=== PATIENT | male | born 1960 | race Caucasian/White ===

== ENCOUNTER → 2020-07-08 16:11 | Outpatient (BNVA) | payer OTHER, SELFPAY | PROVIDERS: Visit Provider Nurse Practitioner Family | DX: Z20.828 Contact with and (suspected) exposure to other viral communicable diseases (principal) | CPT/HCPCS: 87635 ==

== ENCOUNTER 2024-06-29 16:35 | Emergency (ER) | payer MEDICARE, MEDICAID, SELFPAY ==
[2024-06-29 16:47] VITALS: BP 156/91; PULSE 69; TEMP 36.5; O2SAT 99; BMI 31.1
--- NOTE | 2024-06-29 17:01 | XRR_ITS ---
PROCEDURE INFORMATION: Exam: XR Left Hand Exam date and time: 06/29/2024 5:06 PM Age: 64 years old Clinical indication: Injury or trauma; Other: Laceration to top of lt hand; Left TECHNIQUE: Imaging protocol: Radiologic exam of the left hand. Views: 3 or more views. COMPARISON: No relevant prior studies available. FINDINGS: Bones/joints: No evidence of fracture or subluxation. Radiocarpal articulation and carpal rows are grossly intact. No evidence of acute osseous erosion. Moderate-severe thumb carpometacarpal joint osteoarthritis. Soft tissues: Diffuse soft tissue edema. Deep laceration of the dorsum of the hand at the level of the metacarpophalangeal joints. 1 mm metallic foreign body in the dorsum of the wrist at the level of the carpus. XR/XR hand LT min 3V* [id number] IMPRESSION: 1. Deep laceration of the dorsum of the hand without evidence of fracture or subluxation. 2. 1 mm metallic foreign body in the dorsum of the wrist at the level of the carpus.
[2024-06-29 17:03] VITALS: BP 147/97; PULSE 92; RESP 18; O2SAT 98
--- NOTE | 2024-06-29 17:14 | CTR_ITS ---
PROCEDURE INFORMATION: Exam: CT Left Upper Extremity With Contrast, Hand Exam date and time: 06/29/2024 6:53 PM Age: 64 years old Clinical indication: Injury or trauma; Laceration; Hand; Left TECHNIQUE: Imaging protocol: Computed tomography of the left upper extremity with contrast. Exam focused on the hand. Radiation optimization: All CT scans at this facility use at least one of these dose optimization techniques: automated exposure control; mA and/or kV adjustment per patient size (includes targeted exams where dose is matched to clinical indication); or iterative reconstruction. Contrast material: OMNI 350; Contrast volume: 100 ml; Contrast route: INTRAVENOUS (IV); COMPARISON: CR (UP EXM, ) 06/29/2024 5:06 PM RADIATION DOSE METRICS: Total DLP (mGy-cm): 111.08 FINDINGS: Soft tissues: Deep laceration of the dorsum of the hand centered along the dorsum of the index and long finger metacarpophalangeal joints. No discrete fluid collection or hematoma. Soft tissue air extends proximally. There is attenuation of the index and long finger flexor tendons suggestive of at least partial tears. The index finger extensor tendon tear appears high-grade. No evidence of involvement of the thumb, ring or mild finger tendons. There is vascular injury to the digital vessels of the index and long fingers at the level of the laceration with suspected transsection of the small digital branches (for example, images 87-92 of series 13 and images 81-84 of series 13). There may be intraluminal thrombus as visualized on image 91 of series 13. Indeterminate 12 x 10 mm nodular mass along the dorsum of the small finger (image 88 of series 13). 1 mm metallic foreign body in the dorsum of the wrist. Bones/joints: Subtle cortical chip/impaction type fracture of the dorsum of the 3rd metacarpal would be difficult to exclude (image 18 of series 12). Otherwise no evidence of acute fracture or subluxation. Radiocarpal articulation and carpal rows are intact. Severe triscaphe degeneration. CT/CT hand LT w con [id number] IMPRESSION: 1. Deep laceration of the dorsum of the hand with suspected extensor tendon injuries of the long and index fingers. Hand surgery evaluation and MRI is recommended. 2. Possible subtle cortical chip/impaction fracture of the dorsum of the 3rd metacarpal head. Otherwise no evidence of fracture or subluxation. 3. Vascular injury involving the digital branches of the index and long fingers dorsally. 4. Indeterminate nodular mass along the dorsum of the small finger. Evaluation at time of MRI is recommended.
[2024-06-29] MEDS: ondansetron 2 mg/ML SDV 2 mL 4 MG IVP (17:33)
[2024-06-29] MEDS: ceFAZolin 1,000 mg SDV 1000 MG IVP (17:33)
[2024-06-29 17:47] LABS: Basophils # 0.1 10^3/uL (0.0-0.1); Basophils % 0.8 %; Eosinophils # 0.5 10^3/uL (0.0-0.8); Eosinophils % 6.8 %; Hematocrit 46.1 % (37-53); Lymphocytes # 1.3 10^3/uL (0.8-4.8); Lymphocytes % 19.9 %; Mean Corpuscular HGB Conc 33.8 g/dL (30-55); Mean Corpuscular Hemoglobin 30.1 pg (27-33); Mean Platelet Volume 8.2 fL (7.4-10.4); Monocytes # 0.5 10^3/uL (0.2-0.9); Monocytes % 7.7 %; Neutrophils # 4.28 10^3/uL (1.8-7.7); Neutrophils % 64.3 %; Nucleated Red Blood Cells % 0 %; Platelet Count 245 10^3/cmm (157-399); Red Blood Count 5.18 10^6/uL (3.85-5.65); Red Cell Distribution Width 11.9 % (12.1-15.1); White Blood Count 6.64 10^3/uL (3.29-11.43)
--- NOTE | 2024-06-29 17:48 | ED_ITS ---
Documented by User: Jonathon Liu DO 07/01/24 09:48 HPI - Wound/Laceration 2 General: Chief Complaint: Wound/Laceration Stated Complaint: large lac lt hand Time Seen by Provider: 06/29/24 17:01 History of Present Illness: 64-year-old male presents emergency room as a laceration over the second third and fourth knuckles on his left hand. He was using a chainsaw got some kicked back and hit his knuckles. He has difficult time extending his second and third fingers. Denies any other injuries. Related Data Home Medications Medication Instructions Recorded Confirmed loratadine 10 mg capsule 10 mg PO DAILY 07/08/20 07/08/20 omeprazole magnesium 20 mg 20 mg PO DAILY 07/08/20 07/08/20 tablet,delayed release (Prilosec OTC) Previous Rx's Medication Instructions Recorded cephalexin 500 mg capsule 500 mg PO Q6H 7 days #28 caps 06/29/24 hydrocodone 5 mg-acetaminophen 325 1 tab PO Q6H PRN pain #14 tabs 06/29/24 mg tablet Allergies Allergy/AdvReac Type Severity Reaction Status Date / Time Penicillins Allergy Unknown Verified 06/29/24 16:54 PFSH ED 2 PFSH: Social History (Updated 07/08/20 @ 15:32 by Sonja Og NP) Smoking and tobacco/nicotine status: never used tobacco/nicotine Alcohol intake: current Alcohol intake frequency: holidays/special occasions only Substance/Drug Use: never Physical Exam 2 Const: COMMON NORMALS: no acute distress GENERAL APPEARANCE: cooperative and comfortable ORIENTATION/CONSCIOUSNESS: Yes awake, Yes oriented to person, Yes oriented to place and Yes oriented to time HENMT: COMMON NORMALS: normocephalic, atraumatic and hearing grossly normal bilaterally HEAD & SCALP: normocephalic and atraumatic Resp: COMMON NORMALS: normal respiratory effort, No retractions, No use of accessory muscles and clear to auscultation bilaterally AUSCULTATION: clear to auscultation bilaterally Cardio: COMMON NORMALS: regular rate, regular rhythm and No murmurs present (Cardio) RATE: regular rate RHYTHM: regular rhythm Extremity: OTHER: You let irregular laceration and skin tears across the second third and fourth MP joints. No exposed bone or joint. Neuro: SENSORIUM/ORIENTATION: Yes oriented to person, Yes oriented to place and Yes oriented to time Skin: COMMON NORMALS: no rashes or lesions noted GENERAL SKIN EXAM: no rashes or lesions noted Course 2 Vital Signs: Vital signs: Vital Signs Temperature 97.7 F 06/29/24 16:47 Pulse Rate 84 06/29/24 22:41 Respiratory Rate 18 06/29/24 18:16 Blood Pressure 138/95 06/29/24 22:41 Pulse Oximetry 94 06/29/24 22:41 Oxygen Delivery Me thod Room Air 06/29/24 18:16 MDM - Wound/Laceration Medical Decision Making Care signed out to Dr. Bahena at change of shift. See final notes for diagnosis and disposition. Patient has times of approximately 9 mL of 1% epinephrine with epi, sewed loosely by midlevel provider after cleaning with Betadine and extensive irrigation, patient tolerated procedure well, patient will be discharged on Keflex and hydrocodone and referred to hand surgeon. Lab Data 06/29/24 17:38 06/29/24 18:07 Radiology Impressions Hand X-Ray 06/29/24 17:01 IMPRESSION: 1. Deep laceration of the dorsum of the hand without evidence of fracture or subluxation. 2. 1 mm metallic foreign body in the dorsum of the wrist at the level of the carpus. Hand CT 06/29/24 17:14 IMPRESSION: 1. Deep laceration of the dorsum of the hand with suspected extensor tendon injuries of the long and index fingers. Hand surgery evaluation and MRI is recommended. 2. Possible subtle cortical chip/impaction fracture of the dorsum of the 3rd metacarpal head. Otherwise no evidence of fracture or subluxation. 3. Vascular injury involving the digital branches of the index and long fingers dorsally. 4. Indeterminate nodular mass along the dorsum of the small finger. Evaluation at time of MRI is recommended. Laboratory Results WBC 6.64 10^3/uL (3.29-11.43) 06/29/24 17:38 RBC 5.18 10^6/uL (3.85-5.65) 06/29/24 17:38 Hgb 15.60 g/dL (11.27-16.99) 06/29/24 17:38 Hct 46.1 % (37-53) 06/29/24 17:38 MCV 89.0 fl (82-101) 06/29/24 17:38 MCH 30.1 pg (27-33) 06/29/24 17:38 MCHC 33.8 g/dL (30-55) 06/29/24 17:38 RDW 11.9 % (12.1-15.1) L 06/29/24 17:38 Plt Count 245 10^3/cmm (157-399) 06/29/24 17:38 MPV 8.2 fL (7.4-10.4) 06/29/24 17:38 Neut % (Auto) 64.3 % 06/29/24 17:38 Lymph % (Auto) 19.9 % 06/29/24 17:38 [place] % (Auto) 7.7 % 06/29/24 17:38 Eos % (Auto) 6.8 % 06/29/24 17:38 Baso % (Auto) 0.8 % 06/29/24 17:38 Neut # (Auto) 4.28 10^3/uL (1.8-7.7) 06/29/24 17:38 Lymph # (Auto) 1.3 10^3/uL (0.8-4.8) 06/29/24 17:38 [place] # (Auto) 0.5 10^3/uL (0.2-0.9) 06/29/24 17:38 Eos # (Auto) 0.5 10^3/uL (0.0-0.8) 06/29/24 17:38 Baso # (Auto) 0.1 10^3/uL (0.0-0.1) 06/29/24 17:38 Nucleated RBC % (auto) 0 % 06/29/24 17:38 Nucleated RBCs # 0.0 /100WBC 06/29/24 17:38 Sodium 130 mmol/L (136-145) L 06/29/24 18:07 Potassium 4.1 mmol/L (3.5-5.1) 06/29/24 18:07 Chloride 98 mmol/L (98-107) 06/29/24 18:07 Carbon Dioxide 22 mmol/L (22-29) 06/29/24 18:07 Anion Gap 14.1 (5-19) 06/29/24 18:07 BUN 11 mg/dL (8-23) 06/29/24 18:07 Creatinine 0.8 mg/dL (0.7-1.2) 06/29/24 18:07 GFR Calculation 97.0 mL/min (90-130) 06/29/24 18:07 Glucose 122 mg/dL (65-115) H 06/29/24 18:07 Calculated Osmolality 271 mOsm/kg (285-295) L 06/29/24 18:07 Calcium 8.9 mg/dL (8.5-10.5) 06/29/24 18:07 Total Bilirubin 0.3 mg/dL (0.15-1.2) 06/29/24 18:07 AST 20 U/L (0-40) 06/29/24 18:07 ALT 18 U/L (0-41) 06/29/24 18:07 Alkaline Phosphatase 90 U/L (40-130) 06/29/24 18:07 Total Protein 7.1 g/dL (6.6-8.7) 06/29/24 18:07 Albumin 4.0 g/dL (3.5-5.2) 06/29/24 18:07 Globulin 3.1 g/dL (1.3-4.6) 06/29/24 18:07 Discharge Plan Discharge Patient Disposition: Home Clinical Impression: Laceration Condition: Stable Prescriptions: New hydrocodone-acetaminophen 5-325 mg tablet 1 tab PO Q6H PRN (Reason: pain) Qty: 14 0RF cephalexin 500 mg capsule 500 mg PO Q6H 7 Days Qty: 28 0RF No Action omeprazole magnesium [Prilosec OTC] 20 mg tablet,delayed release (DR/EC) 20 mg PO DAILY loratadine 10 mg capsule 10 mg PO DAILY Discharge Orders: Discharge ED (Routine); Ordered 06/29/24 Ordered By: Khris Bahena Patient Instructions: Care For Your Stitches (ED), Tendon Laceration (ED), Opioid Safety, Pain Management Activity Restrictions/Additional Instructions: Please keep wound clean and dry, change dressing as needed, please take all your antibiotics as directed as well as your pain medicine. Please wear splint at all times until seen by hand surgeon. You have been referred to case management they will call you with an appointment for hand surgeon. Coding Level of Care Code ED Squaring Shear Operator for Chg Telmad Documented by User: JEANNIE Mckeon 06/29/24 21:42 HPI - Wound/Laceration 2 General: Chief Complaint: Wound/Laceration Stated Complaint: large lac lt hand Time Seen by Provider: 06/29/24 17:01 Related Data Home Medications Medication Instructions Recorded Confirmed loratadine 10 mg capsule 10 mg PO DAILY 07/08/20 07/08/20 omeprazole magnesium 20 mg 20 mg PO DAILY 07/08/20 07/08/20 tablet,delayed release (Prilosec OTC) Previous Rx's Medication Instructions Recorded cephalexin 500 mg capsule 500 mg PO Q6H 7 days #28 caps 06/29/24 hydrocodone 5 mg-acetaminophen 325 1 tab PO Q6H PRN pain #14 tabs 06/29/24 mg tablet Allergies Allergy/AdvReac Type Severity Reaction Status Date / Time Penicillins Allergy Unknown Verified 06/29/24 16:54 PFSH ED 2 PFSH: Social History (Updated 07/08/20 @ 15:32 by Sonja Og NP) Smoking and tobacco/nicotine status: never used tobacco/nicotine Alcohol intake: current Alcohol intake frequency: holidays/special occasions only Substance/Drug Use: never Procedures Laceration Laceration 1: Site: hand Side (If applicable): left Size (cm): 6 Description: irregular Depth: involves tendon Local Anesthetic: other anesthetic (Wound anesthetized by Dr. Bahena) Pre-repair: wound explored and irrigated extensively Skin layer closed with: other (Prolene) Size (cm): 4-0 Number of sutures: 7 Technique: simple, interrupted Course 2 ED course: I was consulted by Dr. Bahena to repair patient's left dorsal hand laceration. Wound was copiously irrigated and loosely approximated. Dr. Bahena had anesthetized the wound prior to me suturing. On hand CT there reportedly was extensor tendon and bone involvement. Dr. Bahena will plan for patient's disposition/follow-up. Other than laceration repair, I did not actively participate in any portion of patient's care. ES Vital Signs: Vital signs: Vital Signs Temperature 97.7 F 06/29/24 16:47 Pulse Rate 84 06/29/24 22:41 Respiratory Rate 18 06/29/24 18:16 Blood Pressure 138/95 06/29/24 22:41 Pulse Oximetry 94 06/29/24 22:41 Oxygen Delivery Me thod Room Air 06/29/24 18:16 MDM - Wound/Laceration Lab Data 06/29/24 17:38 06/29/24 18:07 Radiology Impressions Hand X-Ray 06/29/24 17:01 IMPRESSION: 1. Deep laceration of the dorsum of the hand without evidence of fracture or subluxation. 2. 1 mm metallic foreign body in the dorsum of the wrist at the level of the carpus. Hand CT 06/29/24 17:14 IMPRESSION: 1. Deep laceration of the dorsum of the hand with suspected extensor tendon injuries of the long and index fingers. Hand surgery evaluation and MRI is recommended. 2. Possible subtle cortical chip/impaction fracture of the dorsum of the 3rd metacarpal head. Otherwise no evidence of fracture or subluxation. 3. Vascular injury involving the digital branches of the index and long fingers dorsally. 4. Indeterminate nodular mass along the dorsum of the small finger. Evaluation at time of MRI is recommended. Laboratory Results WBC 6.64 10^3/uL (3.29-11.43) 06/29/24 17:38 RBC 5.18 10^6/uL (3.85-5.65) 06/29/24 17:38 Hgb 15.60 g/dL (11.27-16.99) 06/29/24 17:38 Hct 46.1 % (37-53) 06/29/24 17:38 MCV 89.0 fl (82-101) 06/29/24 17:38 MCH 30.1 pg (27-33) 06/29/24 17:38 MCHC 33.8 g/dL (30-55) 06/29/24 17:38 RDW 11.9 % (12.1-15.1) L 06/29/24 17:38 Plt Count 245 10^3/cmm (157-399) 06/29/24 17:38 MPV 8.2 fL (7.4-10.4) 06/29/24 17:38 Neut % (Auto) 64.3 % 06/29/24 17:38 Lymph % (Auto) 19.9 % 06/29/24 17:38 [place] % (Auto) 7.7 % 06/29/24 17:38 Eos % (Auto) 6.8 % 06/29/24 17:38 Baso % (Auto) 0.8 % 06/29/24 17:38 Neut # (Auto) 4.28 10^3/uL (1.8-7.7) 06/29/24 17:38 Lymph # (Auto) 1.3 10^3/uL (0.8-4.8) 06/29/24 17:38 [place] # (Auto) 0.5 10^3/uL (0.2-0.9) 06/29/24 17:38 Eos # (Auto) 0.5 10^3/uL (0.0-0.8) 06/29/24 17:38 Baso # (Auto) 0.1 10^3/uL (0.0-0.1) 06/29/24 17:38 Nucleated RBC % (auto) 0 % 06/29/24 17:38 Nucleated RBCs # 0.0 /100WBC 06/29/24 17:38 Sodium 130 mmol/L (136-145) L 06/29/24 18:07 Potassium 4.1 mmol/L (3.5-5.1) 06/29/24 18:07 Chloride 98 mmol/L (98-107) 06/29/24 18:07 Carbon Dioxide 22 mmol/L (22-29) 06/29/24 18:07 Anion Gap 14.1 (5-19) 06/29/24 18:07 BUN 11 mg/dL (8-23) 06/29/24 18:07 Creatinine 0.8 mg/dL (0.7-1.2) 06/29/24 18:07 GFR Calculation 97.0 mL/min (90-130) 06/29/24 18:07 Glucose 122 mg/dL (65-115) H 06/29/24 18:07 Calculated Osmolality 271 mOsm/kg (285-295) L 06/29/24 18:07 Calcium 8.9 mg/dL (8.5-10.5) 06/29/24 18:07 Total Bilirubin 0.3 mg/dL (0.15-1.2) 06/29/24 18:07 AST 20 U/L (0-40) 06/29/24 18:07 ALT 18 U/L (0-41) 06/29/24 18:07 Alkaline Phosphatase 90 U/L (40-130) 06/29/24 18:07 Total Protein 7.1 g/dL (6.6-8.7) 06/29/24 18:07 Albumin 4.0 g/dL (3.5-5.2) 06/29/24 18:07 Globulin 3.1 g/dL (1.3-4.6) 06/29/24 18:07 All radiology interpretation(s) finalized by discharge Discharge Plan Discharge Patient Disposition: Home Clinical Impression: Laceration Condition: Stable Prescriptions: New hydrocodone-acetaminophen 5-325 mg tablet 1 tab PO Q6H PRN (Reason: pain) Qty: 14 0RF cephalexin 500 mg capsule 500 mg PO Q6H 7 Days Qty: 28 0RF No Action omeprazole magnesium [Prilosec OTC] 20 mg tablet,delayed release (DR/EC) 20 mg PO DAILY loratadine 10 mg capsule 10 mg PO DAILY Discharge Orders: Discharge ED (Routine); Ordered 06/29/24 Ordered By: Khris Bahena Patient Instructions: Care For Your Stitches (ED), Tendon Laceration (ED), Opioid Safety, Pain Management Activity Restrictions/Additional Instructions: Please keep wound clean and dry, change dressing as needed, please take all your antibiotics as directed as well as your pain medicine. Please wear splint at all times until seen by hand surgeon. You have been referred to case management they will call you with an appointment for hand surgeon. Coding Level of Care Code ED Squaring Shear Operator for Chg Fwd Documented by User: Khris Bahena DO 06/29/24 21:33 HPI - Wound/Laceration 2 General: Chief Complaint: Wound/Laceration Stated Complaint: large lac lt hand Time Seen by Provider: 06/29/24 17:01 Related Data Home Medications Medication Instructions Recorded Confirmed loratadine 10 mg capsule 10 mg PO DAILY 07/08/20 07/08/20 omeprazole magnesium 20 mg 20 mg PO DAILY 07/08/20 07/08/20 tablet,delayed release (Prilosec OTC) Previous Rx's Medication Instructions Recorded cephalexin 500 mg capsule 500 mg PO Q6H 7 days #28 caps 06/29/24 hydrocodone 5 mg-acetaminophen 325 1 tab PO Q6H PRN pain #14 tabs 06/29/24 mg tablet Allergies Allergy/AdvReac Type Severity Reaction Status Date / Time Penicillins Allergy Unknown Verified 06/29/24 16:54 PFSH ED 2 PFSH: Social History (Updated 07/08/20 @ 15:32 by Sonja Og NP) Smoking and tobacco/nicotine status: never used tobacco/nicotine Alcohol intake: current Alcohol intake frequency: holidays/special occasions only Substance/Drug Use: never Course 2 Vital Signs: Vital signs: Vital Signs Temperature 97.7 F 06/29/24 16:47 Pulse Rate 84 06/29/24 22:41 Respiratory Rate 18 06/29/24 18:16 Blood Pressure 138/95 06/29/24 22:41 Pulse Oximetry 94 06/29/24 22:41 Oxygen Delivery Me thod Room Air 06/29/24 18:16 MDM - Wound/Laceration Medical Decision Making Patient has times of approximately 9 mL of 1% epinephrine with epi, sewed loosely by midlevel provider after cleaning with Betadine and extensive irrigation, patient tolerated procedure well, patient will be discharged on Keflex and hydrocodone and referred to hand surgeon. Lab Data 06/29/24 17:38 06/29/24 18:07 Radiology Impressions Hand X-Ray 06/29/24 17:01 IMPRESSION: 1. Deep laceration of the dorsum of the hand without evidence of fracture or subluxation. 2. 1 mm metallic foreign body in the dorsum of the wrist at the level of the carpus. Hand CT 06/29/24 17:14 IMPRESSION: 1. Deep laceration of the dorsum of the hand with suspected extensor tendon injuries of the long and index fingers. Hand surgery evaluation and MRI is recommended. 2. Possible subtle cortical chip/impaction fracture of the dorsum of the 3rd metacarpal head. Otherwise no evidence of fracture or subluxation. 3. Vascular injury involving the digital branches of the index and long fingers dorsally. 4. Indeterminate nodular mass along the dorsum of the small finger. Evaluation at time of MRI is recommended. Laboratory Results WBC 6.64 10^3/uL (3.29-11.43) 06/29/24 17:38 RBC 5.18 10^6/uL (3.85-5.65) 06/29/24 17:38 Hgb 15.60 g/dL (11.27-16.99) 06/29/24 17:38 Hct 46.1 % (37-53) 06/29/24 17:38 MCV 89.0 fl (82-101) 06/29/24 17:38 MCH 30.1 pg (27-33) 06/29/24 17:38 MCHC 33.8 g/dL (30-55) 06/29/24 17:38 RDW 11.9 % (12.1-15.1) L 06/29/24 17:38 Plt Count 245 10^3/cmm (157-399) 06/29/24 17:38 MPV 8.2 fL (7.4-10.4) 06/29/24 17:38 Neut % (Auto) 64.3 % 06/29/24 17:38 Lymph % (Auto) 19.9 % 06/29/24 17:38 [place] % (Auto) 7.7 % 06/29/24 17:38 Eos % (Auto) 6.8 % 06/29/24 17:38 Baso % (Auto) 0.8 % 06/29/24 17:38 Neut # (Auto) 4.28 10^3/uL (1.8-7.7) 06/29/24 17:38 Lymph # (Auto) 1.3 10^3/uL (0.8-4.8) 06/29/24 17:38 [place] # (Auto) 0.5 10^3/uL (0.2-0.9) 06/29/24 17:38 Eos # (Auto) 0.5 10^3/uL (0.0-0.8) 06/29/24 17:38 Baso # (Auto) 0.1 10^3/uL (0.0-0.1) 06/29/24 17:38 Nucleated RBC % (auto) 0 % 06/29/24 17:38 Nucleated RBCs # 0.0 /100WBC 06/29/24 17:38 Sodium 130 mmol/L (136-145) L 06/29/24 18:07 Potassium 4.1 mmol/L (3.5-5.1) 06/29/24 18:07 Chloride 98 mmol/L (98-107) 06/29/24 18:07 Carbon Dioxide 22 mmol/L (22-29) 06/29/24 18:07 Anion Gap 14.1 (5-19) 06/29/24 18:07 BUN 11 mg/dL (8-23) 06/29/24 18:07 Creatinine 0.8 mg/dL (0.7-1.2) 06/29/24 18:07 GFR Calculation 97.0 mL/min (90-130) 06/29/24 18:07 Glucose 122 mg/dL (65-115) H 06/29/24 18:07 Calculated Osmolality 271 mOsm/kg (285-295) L 06/29/24 18:07 Calcium 8.9 mg/dL (8.5-10.5) 06/29/24 18:07 Total Bilirubin 0.3 mg/dL (0.15-1.2) 06/29/24 18:07 AST 20 U/L (0-40) 06/29/24 18:07 ALT 18 U/L (0-41) 06/29/24 18:07 Alkaline Phosphatase 90 U/L (40-130) 06/29/24 18:07 Total Protein 7.1 g/dL (6.6-8.7) 06/29/24 18:07 Albumin 4.0 g/dL (3.5-5.2) 06/29/24 18:07 Globulin 3.1 g/dL (1.3-4.6) 06/29/24 18:07 Discharge Plan Discharge Patient Disposition: Home Clinical Impression: Laceration Condition: Stable Prescriptions: New hydrocodone-acetaminophen 5-325 mg tablet 1 tab PO Q6H PRN (Reason: pain) Qty: 14 0RF cephalexin 500 mg capsule 500 mg PO Q6H 7 Days Qty: 28 0RF No Action omeprazole magnesium [Prilosec OTC] 20 mg tablet,delayed release (DR/EC) 20 mg PO DAILY loratadine 10 mg capsule 10 mg PO DAILY Discharge Orders: Discharge ED (Routine); Ordered 06/29/24 Ordered By: Khris Bahena Patient Instructions: Care For Your Stitches (ED), Tendon Laceration (ED), Opioid Safety, Pain Management Activity Restrictions/Additional Instructions: Please keep wound clean and dry, change dressing as needed, please take all your antibiotics as directed as well as your pain medicine. Please wear splint at all times until seen by hand surgeon. You have been referred to case management they will call you with an appointment for hand surgeon. Coding Level of Care Code ED Squaring Shear Operator for Sadia Champion
[2024-06-29 18:16] VITALS: BP 148/91; PULSE 103; RESP 18; O2SAT 98
[2024-06-29] MEDS: morphine 4 mg/mL SDV 1 mL IVP (18:16)
[2024-06-29 18:31] LABS: Alanine Aminotransferase 18 U/L (0-41); Alkaline Phosphatase 90 U/L (40-130); Anion Gap 14.1 (5-19); Aspartate Amino Transferase 20 U/L (0-40); Blood Urea Nitrogen 11 mg/dL (8-23); Calcium 8.9 mg/dL (8.5-10.5); Carbon Dioxide 22 mmol/L (22-29); Chloride 98 mmol/L (98-107); Creatinine Clr Calc Pharmacy 114.9615; Globulin 3.1 g/dL (1.3-4.6); Glucose 122 mg/dL (65-115); Osmolality Calculated 271 mOsm/kg (285-295); Potassium 4.1 mmol/L (3.5-5.1); Sodium 130 mmol/L (136-145); Total Bilirubin 0.3 mg/dL (0.15-1.2); Total Protein 7.1 g/dL (6.6-8.7)
[2024-06-29] MEDS: iohexol 350 mg/mL 500 mL Btl (per mL) IV (19:04)
[2024-06-29] MEDS: HYDROcodone-acetaminophen 5-325 mg Tablet 1 TAB PO (22:21)
[2024-06-29 22:41] VITALS: BP 138/95; PULSE 84; O2SAT 94
--- NOTE | 2024-07-01 15:37 | DCPLANNER ---
faxed referral to akbar castillo
== END 2024-06-29 22:25 | disposition home or self-care (01) ==
PROVIDERS: Emergency Provider Family Medicine
DX: S61.412A Laceration without foreign body of left hand, initial encounter (principal); X58.XXXA Exposure to other specified factors, initial encounter
CPT/HCPCS: 36415; 73130; 73201; 80053; 85025; 96374; 96375; 99285; J0690; J2270; J2405